=== PATIENT | female | born 1995 | race Native Hawaiian/Other Pacific Islander ===

== ENCOUNTER 2019-04-29 14:59 | Emergency (ER) | payer OTHER ==
[~2019-04-29] VITALS: Ht 157.5 cm; Wt 62.6 kg
[2019-04-29 15:03] VITALS: TEMP 97.9
[2019-04-29 16:53] VITALS: BP 132/63
== END 2019-04-29 16:53 | disposition home or self-care (01) ==
LOC: ED 14:59
PROC: 0HQGXZZ Repair Left Hand Skin, External Approach (ICD-10-PCS; principal; 2019-04-29)
DX: S61.211A Laceration without foreign body of left index finger without damage to nail, initial encounter (principal); W26.8XXA Contact with other sharp object(s), not elsewhere classified, initial encounter; Y93.89 Activity, other specified; Y92.89 Other specified places as the place of occurrence of the external cause; Y99.0 Civilian activity done for income or pay
CPT/HCPCS: 90471; 90715; 99283

== ENCOUNTER 2019-09-04 14:51 | Outpatient (CLI) | payer OTHER | END 2019-09-04 21:32 | disposition home or self-care (01) | LOC: RESP 14:51 | DX: R00.2 Palpitations (principal) | CPT/HCPCS: 93306 ==